=== PATIENT | male | born 1975 | race Caucasian/White ===

== ENCOUNTER → 2020-10-13 | Outpatient (CLI) | payer BC | LOC: RAD 11:00 | DX: M54.5 Low back pain (principal); G89.29 Other chronic pain; M43.16 Spondylolisthesis, lumbar region | CPT/HCPCS: 72110 ==

== ENCOUNTER → 2020-10-23 | Outpatient (CLI) | payer BC | LOC: KOH-I 13:28 | DX: M43.16 Spondylolisthesis, lumbar region (principal); M51.36 Other intervertebral disc degeneration, lumbar region; M47.816 Spondylosis without myelopathy or radiculopathy, lumbar region; M48.061 Spinal stenosis, lumbar region without neurogenic claudication | CPT/HCPCS: 72148 ==

== ENCOUNTER → 2021-03-24 | Outpatient (CLI) | payer BC | LOC: KOH-I 13:13 | DX: S46.212A Strain of muscle, fascia and tendon of other parts of biceps, left arm, initial encounter (principal) | CPT/HCPCS: 73221 ==